=== PATIENT | female | born 1965 | race Caucasian/White ===

== ENCOUNTER → 2017-01-28 | Outpatient (CLI) | payer BC ==
--- NOTE | 2017-01-30 08:57 | RAD ---
DATE: 01/28/2017 EXAM: DIGITAL SCREEN BILAT W/CAD HISTORY: Routine screening COMPARISON: 10/10/2015, 10/02/2014, 09/12/2013 This study was interpreted with the benefit of Computerized Aided Detection (CAD). The breast parenchyma shows scattered fibroglandular densities. Breast parenchyma level B. FINDINGS: There is a grouping of microcalcifications at the 6:00 location in the left breast which has progressed since previous studies. No new or enlarging breast densities are seen. Benign-appearing lymph nodes are again noted in the axillary regions. IMPRESSION: Increasing cluster of microcalcifications in the left breast. Diagnostic mammograms to include magnification and straight medial lateral views are suggested for further evaluation. BI-RADS CATEGORY: 0 INCOMPLETE: NEEDS ADDITIONAL IMAGING EVALUATION AND/OR PRIOR MAMMOGRAMS FOR COMPARISON. RECOMMENDED FOLLOW-UP: ADD ADDITIONAL IMAGING PQRS compliance statement: Patient information was entered into a reminder system with a target due date for the next mammogram. Mammography is a sensitive method for finding small breast cancers, but it does not detect them all and is not a substitute for careful clinical examination. A negative mammogram does not negate a clinically suspicious finding and should not result in delay in biopsying a clinically suspicious abnormality. "Our facility is accredited by the [employer] Mammography [employer]."
== END | disposition home or self-care (01) ==
LOC: MAMMO 08:07
PROVIDERS: ATTEND Obstetrics & Gynecology
DX: Z12.31 Encounter for screening mammogram for malignant neoplasm of breast (principal)
CPT/HCPCS: G0202; 77067

== ENCOUNTER → 2017-02-13 | Outpatient (CLI) | payer BC ==
--- NOTE | 2017-02-13 15:04 | RAD ---
DATE: 02/13/2017 EXAM: DIGITAL DIAGNOSTIC LT HISTORY: Callback for left breast calcifications. COMPARISON: Previous mammogram from 01/28/2017, 2016 and 2015 This study was interpreted with the benefit of Computerized Aided Detection (CAD ). FINDINGS: Breast Density: SCATTERED The breast parenchyma shows scattered fibroglandular densities. Breast parenchyma level B. The cc view of the left central breast demonstrates focal area of amorphous calcifications. There is no associated architectural distortion or mass. IMPRESSION: Left breast calcifications with amorphous appearance. These are mildly suspicious and biopsy should be considered. BI-RADS CATEGORY: 4 SUSPICIOUS ABNORMALITY-BIOPSY SHOULD BE CONSIDERED RECOMMENDED FOLLOW-UP: Stereotactic BIO BIOPSY RECOMMENDED Findings were discussed with the patient on 02/13/2017. PQRS compliance statement: Patient information was entered into a reminder system with a target due date for the next mammogram. Mammography is a sensitive method for finding small breast cancers, but it does not detect them all and is not a substitute for careful clinical examination. A negative mammogram does not negate a clinically suspicious finding and should not result in delay in biopsying a clinically suspicious abnormality. "Our facility is accredited by the [employer] Mammography [employer]." MTDD
== END | disposition home or self-care (01) ==
LOC: MAMMO 09:52
PROVIDERS: ATTEND Obstetrics & Gynecology
DX: R92.1 Mammographic calcification found on diagnostic imaging of breast (principal)
CPT/HCPCS: G0206; 77065

== ENCOUNTER → 2017-02-15 | Outpatient (CLI) | payer BC ==
[~2017-02-15] MED LIST: LIDOCAINE 1% / SOD BICARB 8.4% 20 ML VIAL. IJ ONE; LIDOCAINE 2%/EPI 1:100,000 20 ML VIAL. IJ ONE
--- NOTE | 2017-02-15 12:14 | RAD ---
Clinical History: Suspicious microcalcifications left breast. Relative benefits risks and alternatives to the procedure were discussed and written informed consent was obtained. The patient patient was placed prone on a biopsy table and target microcalcifications were localized by stereotactic technique from above in the CC projection. With local anesthesia and sterile technique and mammogram stereotactic guidance percutaneous biopsy was performed with an 11-gauge Mammotome needle and vacuum assistance. Multiple samples were obtained and sent to pathology. The procedure was well tolerated. A marker was placed at the end of procedure. CC and ML views were obtained to confirm clip placement. The patient was sent home in good condition with written and verbal instructions. Impression: Status post stereotactic guided biopsy of microcalcifications. Specimen radiograph: A radiograph was obtained of the tissue specimen. Multiple microcalcifications are seen in the specimen. The specimen was inked and sent to pathology. Impression: Target microcalcifications are in the specimen. Pathology is pending.
--- NOTE | 2017-02-16 13:56 | PATHOLOGY ---
PATHOLOGY REPORT * * * * * * * * FINAL DIAGNOSIS: Breast tissue, left breast sterotactic needle biopsies: - Ancient fibroadenoma, with associated calcifications. COMMENT: There is no evidence of malignancy. (JPM:pit; 02/16/2017) REPORT ELECTRONICALLY SIGNED BY: Kody Dove M.D. DATE/TIME: 02/16/2017 13:56 * * * * * * * * GROSS PATHOLOGY: Received in formalin labeled "Dhara Reyez, left breast," is a plastic cassette containing multiple cores of yellow-rai fibrofatty tissue measuring 2.3 x 2.0 x 0.4 cm in aggregate dimensions. The tissue in the cassette is transferred to cassette A1. The cold ischemic time is 11 minutes. The total formalin fixation time is approximately 10 hours and 30 minutes. (SDY; 02/15/2017) INITIAL CPT CODE(S): A; 37140 Professional services performed [place] [facility] [place] [address] Technical services performed by [facility] at [address] [place] [address] [address] [address] Dr. Johnson, fax: [phone] SPECIMEN(S) RECEIVED: A.Left breast calcifications CLINICAL HISTORY: Left breast calcifications PATIENT: DHARA REYEZ /AGE: 3 1965 (Age: 51) PATIENT #: [id number] CASE #: SPECIMEN COLLECTION DATE: 02/15/2017 SPECIMEN RECEIVED DATE: 02/15/2017 [facility] - [address] [place] [address] - PHONE: [phone] * * * END OF REPORT * * *
== END | disposition home or self-care (01) ==
LOC: MAMMO 09:05
PROVIDERS: ATTEND Obstetrics & Gynecology
DX: R92.0 Mammographic microcalcification found on diagnostic imaging of breast (principal)
CPT/HCPCS: 19085; 77022; 88305; C1713; G0206; J3490; 77065

== ENCOUNTER → 2018-02-21 | Outpatient (CLI) | payer BC ==
--- NOTE | 2018-02-21 13:57 | RAD ---
DATE: 02/21/2018 EXAM: DIGITAL SCREEN BILAT W/CAD HISTORY: Routine screening COMPARISON: 02/15/2017, 02/13/2017, 01/28/2017 This study was interpreted with the benefit of Computerized Aided Detection (CAD). Breast Density: SCATTERED The breast parenchyma shows scattered fibroglandular densities. Breast parenchyma level B. FINDINGS: A breast biopsy marker is again noted just inferior to the midline of the left breast. That biopsy produced benign results. There are residual microcalcifications in the left breast which are most prominent just anterior, inferior and medial to the breast biopsy marker. These microcalcifications are unchanged. A small unchanged density is again noted laterally in the right breast. This corresponds in location to a larger nodule was evident in 2016. This is probably related to the given history of a previous breast abscess. No new or enlarging breast densities are seen. IMPRESSION: Stable mammograms without evidence of malignancy. BI-RADS CATEGORY: 2 BENIGN FINDING(S) RECOMMENDED FOLLOW-UP: 12M 12 MONTH FOLLOW-UP PQRS compliance statement: Patient information was entered into a reminder system with a target due date for the next mammogram. Mammography is a sensitive method for finding small breast cancers, but it does not detect them all and is not a substitute for careful clinical examination. A negative mammogram does not negate a clinically suspicious finding and should not result in delay in biopsying a clinically suspicious abnormality. "Our facility is accredited by the [employer] Mammography Program."
== END | disposition home or self-care (01) ==
LOC: MAMMO 12:16
PROVIDERS: ATTEND Family Medicine
DX: Z12.31 Encounter for screening mammogram for malignant neoplasm of breast (principal)
CPT/HCPCS: 77067

== ENCOUNTER 2019-02-20 00:19 | Emergency (ER) | payer BC ==
[~2019-02-20] VITALS: Ht 162.6 cm; Wt 122.5 kg
[2019-02-20] MEDS ORDERED: NITROGLYCERIN SUBLINGUAL 0.4 MG BOTTLE OF 25. SL PRN (00:30)
[2019-02-20 00:43] LABS: BASO # 0.1 x10^3/uL (0.0-0.2); BASO % 1 % (0-3); EOS # 0.4 x10^3/uL (0.0-0.7); EOS % 4 % (0-3); HEMATOCRIT 39.3 % (36.0-47.0); LYMPH # 1.7 x10^3/uL (1.0-4.8); LYMPH % 22 % (24-48); MEAN CORPUSCULAR HEMOGLOBIN 26 pg (25-35); MEAN CORPUSCULAR HGB CONC 33 g/dL (31-37); MEAN CORPUSCULAR VOLUME 78 fL (79-100); MONO # 0.4 x10^3/uL (0.0-1.1); MONO % 5 % (0-9); NEUT # 5.5 x10^3/uL (1.8-7.7); NEUT % 68 % (31-73); PLATELET COUNT 374 x10^3/uL (140-400); RED BLOOD COUNT 5.02 x10^6/uL (3.50-5.40); RED CELL DISTRIBUTION WIDTH 17.3 % (11.5-14.5)
[2019-02-20] MEDS ORDERED: ASPIRIN CHEWABLE 81 MG TABLET. PO ONE (00:45)
--- NOTE | 2019-02-20 00:54 | RAD ---
Exam: Chest one view INDICATION: Chest pain TECHNIQUE: Frontal view of the chest Comparisons: None FINDINGS: The cardiomediastinal silhouette and pulmonary vessels are within normal limits. The lung and pleural spaces are clear. IMPRESSION: No acute cardiopulmonary process. Electronically signed by: Mariaa Blanchard MD (02/20/2019 12:51 AM) [facility]
[2019-02-20 00:55] LABS: CALCIUM 9.3 mg/dL (8.5-10.1); CREATININE 1.4 mg/dL (0.6-1.0); GFR 39.2; POTASSIUM 3.9 mmol/L (3.5-5.1)
[2019-02-20] MEDS ORDERED: MORPHINE SULFATE 2 MG/ML VIAL. IV ONE (01:00)
[2019-02-20] MEDS ORDERED: ONDANSETRON PF 4 MG/2 ML VIAL. IV ONE (01:00)
[2019-02-20 01:01] LABS: ALBUMIN 3.7 g/dL (3.4-5.0); ALBUMIN/GLOBULIN RATIO 0.9 (1.0-1.7); MAGNESIUM 2.1 mg/dL (1.8-2.4); TOTAL BILIRUBIN 0.5 mg/dL (0.2-1.0); TOTAL PROTEIN 7.9 g/dL (6.4-8.2)
--- NOTE | 2019-02-20 01:26 | PHYS DOC ---
Past Medical History Past Medical History: Asthma, Hypothyroid Past Surgical History: Cholecystectomy, Other Additional Past Surgical Histo: Dental Alcohol Use: None Drug Use: None Adult General Chief Complaint Chief Complaint: CHEST PAIN HPI HPI 53-year-old female presents to the emergency department with complaints of nausea, vomiting, epigastric pain radiation to her back. Started around 8:30 PM after eating something she developed nausea vomiting and epigastric pain. She didn't states the pain radiates towards her back. She is prehypertensive upon initial evaluation systolic blood pressure greater than 200. She does complain of a history of DVT she is currently on no blood thinning medications at this time. Patient denies any fever, chills, diarrhea. Her pain worse, nothing makes her pain better. She states she's had a history of cholecystectomy in the past. Review of Systems Review of Systems Constitutional: Denies fever or chills [] Respiratory: SOB Cardiovascular: No additional information not addressed in HPI [] GI: + abdominal pain, nausea, vomiting, no bloody stools or diarrhea [] Musculoskeletal: pain radiated to back, no joint pain [] Integument: Denies rash or skin lesions [] Neurologic: Denies headache, focal weakness or sensory changes [] All other systems were reviewed and found to be within normal limits, except as documented in this note. Current Medications Current Medications Current Medications Medications (Trade) Dose Ordered Sig/Bony Start Time Stop Time Status Last Admin Dose Admin Aspirin (Children'S Aspirin) 324 mg 1X ONCE 02/20/19 00:45 02/20/19 00:46 DC 02/20/19 00:53 324 MG Hydromorphone HCl (Dilaudid) 1 mg 1X ONCE 02/20/19 03:15 02/20/19 03:28 DC 02/20/19 03:09 1 MG Info (CONTRAST GIVEN -- Rx MONITORING) 1 each PRN DAILY PRN 02/20/19 04:15 02/22/19 04:14 Iohexol (Omnipaque 240 Mg/ml) 50 ml 1X ONCE 02/20/19 04:15 02/20/19 04:16 DC 02/20/19 04:11 50 ML Iohexol (Omnipaque 350 Mg/ml) 100 ml STK-MED ONCE 02/20/19 02:34 02/20/19 02:35 DC Levofloxacin/ Dextrose 150 ml @ 100 mls/hr 1X ONCE 02/20/19 03:15 02/20/19 04:44 02/20/19 03:10 100 MLS/HR Metronidazole 100 ml @ 100 mls/hr 1X ONCE 02/20/19 03:00 02/20/19 03:59 DC 02/20/19 03:10 100 MLS/HR Morphine Sulfate (Morphine Sulfate) 2 mg 1X ONCE 02/20/19 01:00 02/20/19 01:01 DC 02/20/19 01:12 2 MG Nitroglycerin (Nitrostat) 0.4 mg PRN Q5MIN PRN 02/20/19 00:30 02/21/19 00:29 02/20/19 00:55 0.4 MG Ondansetron HCl (Zofran) 4 mg 1X ONCE 02/20/19 01:00 02/20/19 01:01 DC 02/20/19 01:12 4 MG Sodium Chloride 1,000 ml @ 1,000 mls/hr 1X ONCE 02/20/19 02:00 02/20/19 02:59 DC 02/20/19 02:31 1,000 MLS/HR Allergies Allergies Allergies Coded Allergies Type Severity Reaction Last Updated Verified Penicillins Allergy Intermediate 02/15/17 Yes cefaclor Allergy Intermediate SWOLLEN EYES 02/15/17 Yes cephalexin Allergy Intermediate 02/15/17 Yes Physical Exam Physical Exam Constitutional: Well developed, well nourished, acute distress 2/2 pain, pale, nontoxic appearing. [] HENT: Normocephalic, atraumatic, bilateral external ears normal, oropharynx moist, no oral exudates, nose normal. [] Eyes: PERRLA, EOMI, conjunctiva normal, no discharge. [] Neck: Normal range of motion, no tenderness, supple, no stridor. [] Cardiovascular:Heart rate regular rhythm, no murmur [] Lungs & Thorax: Bilateral breath sounds clear to auscultation [] Abdomen: Bowel sounds normal, soft, no tenderness, no masses, no pulsatile masses. [] Skin: Warm, dry, no erythema, no rash. [] Back: pain radiates to her back, no CVA tenderness. [] Extremities: No tenderness, + edema bilateral lower edema. [] Neurologic: Alert and oriented X 3, no focal deficits noted. [] Psychologic: Affect normal, judgement normal, mood normal. [] Current Patient Data Vital Signs Vital Signs Date Time Temp Pulse Resp B/P (MAP) Pulse Ox O2 Delivery O2 Flow Rate FiO2 02/20/19 03:09 93 02/20/19 03:07 111 175/75 (108) Nasal Cannula 4.0 02/20/19 00:20 98.0 19 98.0 Lab Values Laboratory Tests Test 02/20/19 00:30 02/20/19 00:38 White Blood Count 8.0 x10^3/uL (4.0-11.0) Red Blood Count 5.02 x10^6/uL (3.50-5.40) Hemoglobin 13.0 g/dL (12.0-15.5) Hematocrit 39.3 % (36.0-47.0) Mean Corpuscular Volume 78 fL (79-100) L Mean Corpuscular Hemoglobin 26 pg (25-35) Mean Corpuscular Hemoglobin Concent 33 g/dL (31-37) Red Cell Distribution Width 17.3 % (11.5-14.5) H Platelet Count 374 x10^3/uL (140-400) Neutrophils (%) (Auto) 68 % (31-73) Lymphocytes (%) (Auto) 22 % (24-48) L Monocytes (%) (Auto) 5 % (0-9) Eosinophils (%) (Auto) 4 % (0-3) H Basophils (%) (Auto) 1 % (0-3) Neutrophils # (Auto) 5.5 x10^3/uL (1.8-7.7) Lymphocytes # (Auto) 1.7 x10^3/uL (1.0-4.8) Monocytes # (Auto) 0.4 x10^3/uL (0.0-1.1) Eosinophils # (Auto) 0.4 x10^3/uL (0.0-0.7) Basophils # (Auto) 0.1 x10^3/uL (0.0-0.2) D-Dimer (Betsy) 1.04 ug/mlFEU (0.00-0.50) H Sodium Level 143 mmol/L (136-145) Potassium Level 3.9 mmol/L (3.5-5.1) Chloride Level 102 mmol/L (98-107) Carbon Dioxide Level 33 mmol/L (21-32) H Anion Gap 8 (6-14) Blood Urea Nitrogen 16 mg/dL (7-20) Creatinine 1.4 mg/dL (0.6-1.0) H Estimated GFR (Cockcroft-Gault) 39.2 BUN/Creatinine Ratio 11 (6-20) Glucose Level 125 mg/dL (70-99) H Calcium Level 9.3 mg/dL (8.5-10.1) Magnesium Level 2.1 mg/dL (1.8-2.4) Total Bilirubin 0.5 mg/dL (0.2-1.0) Aspartate Amino Transferase (AST) 20 U/L (15-37) Alanine Aminotransferase (ALT) 29 U/L (14-59) Alkaline Phosphatase 116 U/L (46-116) Troponin I Quantitative < 0.017 ng/mL (0.000-0.055) LC-Qyo-A-Type Natriuretic Peptide 287 pg/mL (0-124) H Total Protein 7.9 g/dL (6.4-8.2) Albumin 3.7 g/dL (3.4-5.0) Albumin/Globulin Ratio 0.9 (1.0-1.7) L Lipase 128 U/L (73-393) Lactic Acid Level 1.3 mmol/L (0.4-2.0) Laboratory Tests 02/20/19 00:30 Laboratory Tests 02/20/19 00:30 EKG EKG EKG: interpretation 0025, HR 90, normal axis, no STEMI appreciated[] Radiology/Procedures Radiology/Procedures [facility] [address] [place] [address] IMAGING REPORT Signed PATIENT: LANG BECERRA ACCOUNT: [id number] : 1965 LOCATION: ER AGE: 53 SEX: F EXAM STATUS: REG ER ORD. PHYSICIAN: VIK RIVERA MD REASON: Chest Pain PROCEDURE: PORTABLE CHEST 1V Exam: Chest one view INDICATION: Chest pain TECHNIQUE: Frontal view of the chest Comparisons: None FINDINGS: The cardiomediastinal silhouette and pulmonary vessels are within normal limits. The lung and pleural spaces are clear. IMPRESSION: No acute cardiopulmonary process. Electronically signed by: Mariaa Alvarez MD (02/20/2019 12:51 AM) [facility] DICTATED and SIGNED BY: MARIAA ALVAREZ MD DATE: 02/20/19 0051 [] [facility] [address] [place] [address] IMAGING REPORT Signed PATIENT: LANG BECERRA ACCOUNT: [id number] : 1965 LOCATION: ER AGE: 53 SEX: F EXAM STATUS: REG ER ORD. PHYSICIAN: VIK RIVERA MD REASON: chest pain, epigastric pain history of DVT OMNI 350, 70ML IV PROCEDURE: CT ANGIO CHEST ABD PELVIS Exam: CT of chest, abdomen and pelvis with contrast INDICATION: Chest pain TECHNIQUE: Sequential axial images through the chest, abdomen and pelvis obtained following the administration of 70 mL of Omni 350 IV contrast. Sagittal and coronal reformatted images were reconstructed from the axial data and reviewed. 3-D reformatted images were reconstructed from the axial data and reviewed. Comparisons: Chest x-ray same day FINDINGS: Visualized portions of the thyroid are unremarkable. No enlarged mediastinal lymph nodes are identified. Heart size is normal. No pericardial effusion. Thoracic aorta has a normal course and caliber. Pulmonary artery is not enlarged. No pulmonary embolus identified within the main, lobar or segmental pulmonary arteries. Evaluation in the left lower lobe limited secondary to cardiac motion. There is a small amount of pneumomediastinum predominantly surrounding the distal esophagus seen tracking up the posterior mediastinum. Airways are patent. No consolidation or pneumothorax. There is a small left-sided pleural effusion with adjacent airspace disease, likely atelectasis. No suspicious lung nodules. Mild hepatic steatosis. Spleen, pancreas, and adrenals are unremarkable. Gallbladder surgically absent. Kidneys demonstrate symmetric enhancement. No perinephric inflammation or hydronephrosis. No renal or ureteral calculi are identified. Bladder is decompressed not well evaluated. Uterus is not enlarged. No abnormal adnexal mass. Large and small bowel are unremarkable. No obstruction. No free intra-abdominal air or fluid. There is wall thickening at the gastroesophageal junction. Abdominal aorta has a normal course and caliber. Abdominal vasculature is patent. No enlarged abdominal lymph nodes. No suspicious osseous lesions or acute fractures. IMPRESSION: 1. Findings likely related to a distal esophageal perforation. Wall thickening of the distal esophagus with small amount of extraluminal air surrounding the distal esophagus tracking up the posterior mediastinum. Additionally there is a small amount of pleural fluid on the left adjacent to the esophagus. 2. No pulmonary embolus identified within the main, lobar or segmental pulmonary arteries. 3. Mild hepatic. Exposure: One or more of the following in the visualized dose reduction techniques were utilized for this examination: 1. Automated exposure control 2. Adjustment of the MA and/or KV according to patient size 3. Use of iterative of reconstructive technique FOR INTERNAL CODING PURPOSES Critical result: Findings discussed with VIK RIVERA at 02/20/2019 2:35 AM. RESULT CODE: (C) Electronically signed by: Mariaa Alvarez MD (02/20/2019 2:42 AM) [facility] DICTATED and SIGNED BY: MARIAA ALVAREZ MD DATE: 02/20/19 0242 [facility] [address] [place] [address] IMAGING REPORT Signed PATIENT: LANG BECERRA ACCOUNT: [id number] : 1965 LOCATION: ER AGE: 53 SEX: F EXAM STATUS: REG ER ORD. PHYSICIAN: VIK RIVERA MD REASON: oral contrast only, concern for distal esophageal rupture PROCEDURE: CT CHEST W/CONTRAST Exam: CT of chest without contrast INDICATION: Concern for distal esophageal rupture TECHNIQUE: Sequential axial images through the chest obtained without IV contrast. Oral contrast was administered. Sagittal and coronal reformatted images were reconstructed from the axial data and reviewed. Comparisons: CT same day FINDINGS: Visualized portions of the thyroid are unremarkable. No enlarged mediastinal lymph nodes are identified. Heart size is normal. No pericardial effusion. Thoracic aorta has normal course and caliber. Pulmonary artery is not enlarged. Airways are patent. Redemonstration of a left basilar pleural effusion with adjacent airspace disease at the left lower lobe. Oral contrast is noted within the esophagus with distention of the distal esophagus and proximal stomach. No extravasated oral contrast is identified. There is redemonstration of pneumomediastinum tracking along the esophagus, greatest at the lower esophagus. Visualized upper abdomen is unremarkable. No suspicious osseous lesions or acute fractures. IMPRESSION: No extravasated contrast is identified. There remains concern for distal esophageal perforation given the posterior pneumomediastinum surrounding the distal esophagus and left basilar effusion. Exposure: One or more of the following in the visualized dose reduction techniques were utilized for this examination: 1. Automated exposure control 2. Adjustment of the MA and/or KV according to patient size 3. Use of iterative of reconstructive technique Electronically signed by: Mariaa Alvarez MD (02/20/2019 4:15 AM) [facility] DICTATED and SIGNED BY: MARIAA ALVAREZ MD DATE: 02/20/19414 Course & Med Decision Making Course & Med Decision Making Pertinent Labs and Imaging studies reviewed. (See chart for details) []53-year-old female presents to the emergency department with complaints of nausea, vomiting, epigastric pain radiation to her back. Started around 8:30 PM after eating something she developed nausea vomiting and epigastric pain. She didn't states the pain radiates towards her back. She is prehypertensive upon initial evaluation systolic blood pressure greater than 200. She does complain of a history of DVT she is currently on no blood thinning medications at this time. Patient denies any fever, chills, diarrhea. Her pain worse, nothing makes her pain better. She states she's had a history of cholecystectomy in the past. NTG sublingual times one without improvement Morphine 2 mg, Zofran 4 mg IV 1 Systolic blood pressure did improve after nitroglycerin as well as morphine currently 130s her pain however has not improved. Dilaudid 1mg IV x 1 - pain improved, reassessment 0445 Call from radiology 0300 with report concerning for esophageal rupture Call placed to Transfer Center - 0305 / no Thoracic Surgery at this facility Discussed with [facility] transfer, recommend further evaluation with esophagram of which we dont do after hours according to Radiology, instead will attempt CT chest with oral contrast to evaluate the distal esophagus Call back from 0430 - Vascular Surgeon (Dr. Connell) will accept patient in transfer Discussed findings with patient/family at bedside Patient will be transferred to via ambulance Dragon Disclaimer Dragon Disclaimer This electronic medical record was generated, in whole or in part, using a voice recognition dictation system. Departure Departure Impression: Primary Impression: Esophageal abnormality Additional Impressions: Nausea & vomiting Asthma without acute exacerbation Hypothyroid Obesity, morbid, BMI 40.0-49.9 Disposition: 05 TRANSFER OTHER ([facility]) Condition: STABLE Referrals: BALAJI YOST MD (PCP) Critical Care Time Critical care time was 45 minutes exclusive of procedures. Problem Qualifiers Additional Impressions: Nausea & vomiting Vomiting type: unspecified Vomiting Intractability: non-intractable Qualified Codes: R11.2 - Nausea with vomiting, unspecified Hypothyroid Hypothyroidism type: unspecified Qualified Codes: E03.9 - Hypothyroidism, unspecified VIK RIVERA MD Feb 20, 2019 01:26
[2019-02-20] MEDS ORDERED: IOHEXOL 350 MG/ML 100 ML VIAL. IV ONE ×2 (02:00→02:45)
[2019-02-20] MEDS ORDERED: IV NORMAL SALINE 1000ML BAG 1,000 ML IV ONE (02:00)
[2019-02-20] MEDS ORDERED: IOHEXOL 350 MG/ML 100 ML VIAL. ONE (02:34)
[2019-02-20] MEDS ORDERED: CONTRAST GIVEN. MC PRN ×2 (02:45→04:15)
--- NOTE | 2019-02-20 02:45 | RAD ---
Exam: CT of chest, abdomen and pelvis with contrast INDICATION: Chest pain TECHNIQUE: Sequential axial images through the chest, abdomen and pelvis obtained following the administration of 70 mL of Omni 350 IV contrast. Sagittal and coronal reformatted images were reconstructed from the axial data and reviewed. 3-D reformatted images were reconstructed from the axial data and reviewed. Comparisons: Chest x-ray same day FINDINGS: Visualized portions of the thyroid are unremarkable. No enlarged mediastinal lymph nodes are identified. Heart size is normal. No pericardial effusion. Thoracic aorta has a normal course and caliber. Pulmonary artery is not enlarged. No pulmonary embolus identified within the main, lobar or segmental pulmonary arteries. Evaluation in the left lower lobe limited secondary to cardiac motion. There is a small amount of pneumomediastinum predominantly surrounding the distal esophagus seen tracking up the posterior mediastinum. Airways are patent. No consolidation or pneumothorax. There is a small left-sided pleural effusion with adjacent airspace disease, likely atelectasis. No suspicious lung nodules. Mild hepatic steatosis. Spleen, pancreas, and adrenals are unremarkable. Gallbladder surgically absent. Kidneys demonstrate symmetric enhancement. No perinephric inflammation or hydronephrosis. No renal or ureteral calculi are identified. Bladder is decompressed not well evaluated. Uterus is not enlarged. No abnormal adnexal mass. Large and small bowel are unremarkable. No obstruction. No free intra-abdominal air or fluid. There is wall thickening at the gastroesophageal junction. Abdominal aorta has a normal course and caliber. Abdominal vasculature is patent. No enlarged abdominal lymph nodes. No suspicious osseous lesions or acute fractures. IMPRESSION: 1. Findings likely related to a distal esophageal perforation. Wall thickening of the distal esophagus with small amount of extraluminal air surrounding the distal esophagus tracking up the posterior mediastinum. Additionally there is a small amount of pleural fluid on the left adjacent to the esophagus. 2. No pulmonary embolus identified within the main, lobar or segmental pulmonary arteries. 3. Mild hepatic. Exposure: One or more of the following in the visualized dose reduction techniques were utilized for this examination: 1. Automated exposure control 2. Adjustment of the MA and/or KV according to patient size 3. Use of iterative of reconstructive technique FOR INTERNAL CODING PURPOSES Critical result: Findings discussed with VIK RIVERA at 02/20/2019 2:35 AM. RESULT CODE: (C) Electronically signed by: Mariaa Blanchard MD (02/20/2019 2:42 AM) [email or web address]
[2019-02-20] MEDS ORDERED: HYDROmorphone 2 MG/ML VIAL IV ONE (03:15)
[2019-02-20] MEDS ORDERED: IOHEXOL 240 MG/ML 50ML VIAL. PO ONE (04:15)
--- NOTE | 2019-02-20 04:18 | RAD ---
Exam: CT of chest without contrast INDICATION: Concern for distal esophageal rupture TECHNIQUE: Sequential axial images through the chest obtained without IV contrast. Oral contrast was administered. Sagittal and coronal reformatted images were reconstructed from the axial data and reviewed. Comparisons: CT same day FINDINGS: Visualized portions of the thyroid are unremarkable. No enlarged mediastinal lymph nodes are identified. Heart size is normal. No pericardial effusion. Thoracic aorta has normal course and caliber. Pulmonary artery is not enlarged. Airways are patent. Redemonstration of a left basilar pleural effusion with adjacent airspace disease at the left lower lobe. Oral contrast is noted within the esophagus with distention of the distal esophagus and proximal stomach. No extravasated oral contrast is identified. There is redemonstration of pneumomediastinum tracking along the esophagus, greatest at the lower esophagus. Visualized upper abdomen is unremarkable. No suspicious osseous lesions or acute fractures. IMPRESSION: No extravasated contrast is identified. There remains concern for distal esophageal perforation given the posterior pneumomediastinum surrounding the distal esophagus and left basilar effusion. Exposure: One or more of the following in the visualized dose reduction techniques were utilized for this examination: 1. Automated exposure control 2. Adjustment of the MA and/or KV according to patient size 3. Use of iterative of reconstructive technique Electronically signed by: Mariaa Blanchard MD (02/20/2019 4:15 AM) [email or web address]
[2019-02-20 04:38] VITALS: BP 188/80
--- NOTE | 2019-02-20 16:19 | EKG ---
[facility] [address] [place] [address] Test Date: 2019-02-20 Test Time: 00:25:16 Pat Name: LANG BECERRA Department: Room: Gender: F [employer]: : 1965 Requested By: VIK RIVERA Order Number: [id number] Reading MD: Measurements Intervals Lynx Rate: 90 P: 47 NJ: 164 QRS: 16 QRSD: 72 T: 87 QT: 368 QTc: 454 Interpretive Statements SINUS RHYTHM ST & T ABNORMALITY, CONSIDER HIGH LATERAL ISCHEMIA OR LEFT VENTRICULAR STRAIN T ABNORMALITY IN INFERIOR LEADS ABNORMAL ECG No previous ECG available for comparison
== END 2019-02-20 05:17 | disposition short-term general hospital (02) ==
LOC: ER 00:19
DX: K22.8 Other specified diseases of esophagus (principal); R11.2 Nausea with vomiting, unspecified; R60.0 Localized edema; J45.909 Unspecified asthma, uncomplicated; E03.9 Hypothyroidism, unspecified; E66.01 Morbid (severe) obesity due to excess calories; Z68.42 Body mass index [BMI] 45.0-49.9, adult; Z90.49 Acquired absence of other specified parts of digestive tract; Z98.890 Other specified postprocedural states; Z79.82 Long term (current) use of aspirin; Z79.899 Other long term (current) drug therapy; Z88.0 Allergy status to penicillin; Z88.1 Allergy status to other antibiotic agents
CPT/HCPCS: 36415; 71045; 71260; 71275; 74174; 80053; 83605; 83690; 83735; 83880; 84484; 85025; 85379; 93005; 96361; 96365; 96366; 96368; 96375; 99285; J1170; J1956; J2270; J2405; J3490; J7030; Q9966; Q9967

== ENCOUNTER → 2020-01-11 | Outpatient (CLI) | payer BC ==
--- NOTE | 2020-01-13 11:00 | RAD ---
DATE: 01/11/2020 9:00 AM EXAM: DIGITAL SCREEN BILAT W/CAD HISTORY: Screening. History of benign left breast stereotactic biopsy of calcifications showing ancient fibroadenoma. COMPARISON: 02/21/2018, 02/15/2017 Bilateral full field craniocaudal and mediolateral oblique images were obtained using digital technique. This study was interpreted with the benefit of Computerized Aided Detection (CAD). FINDINGS: Breast Density: SCATTERED The breast parenchyma shows scattered fibroglandular densities. Breast parenchyma level B Benign biopsy marker in the posterior central left breast and residual calcifications in the inferior middle third left breast. No significant interval change. No suspicious masses, microcalcifications or architectural distortion is present to suggest malignancy in either breast. The visualized axillae are unremarkable. IMPRESSION: No mammographic evidence of malignancy. BI-RADS CATEGORY: 2 BENIGN FINDING(S) RECOMMENDED FOLLOW-UP: 12M 12 MONTH FOLLOW-UP Annual screening mammography is recommended, unless clinically indicated sooner based on symptoms or change in physical exam. PQRS compliance statement: Patient information was entered into a reminder system with a target due date for the next mammogram. Mammography is a sensitive method for finding small breast cancers, but it does not detect them all and is not a substitute for careful clinical examination. A negative mammogram does not negate a clinically suspicious finding and should not result in delay in biopsying a clinically suspicious abnormality. "Our facility is accredited by the [employer] Mammography Program."
== END ==
LOC: MAMMO 08:59
PROVIDERS: ATTEND Family Medicine
DX: Z12.31 Encounter for screening mammogram for malignant neoplasm of breast (principal)
CPT/HCPCS: 77067

== ENCOUNTER → 2021-01-16 | Outpatient (CLI) | payer BC ==
--- NOTE | 2021-01-18 13:30 | RAD ---
INDICATION: 55 years of age asymptomatic female patient presents for screening mammography. TECHNIQUE: Bilateral full field craniocaudal and mediolateral oblique images were obtained using dig ital technique and also analyzed with computer-aided detection software. COMPARISON: Prior mammographic imaging dating 01/11/2020, 02/21/2018, 02/23/2017, 01/28/2017, 6 H6 10/09/1713 BREAST COMPOSITION: Category B: There are scattered fibroglandular densities. FINDINGS: Benign calcifications are present. The parenchymal pattern appears stable. No suspicious masses, microcalcifications or architectural distortion is present to suggest malignanc y in either breast. The visualized axillae are unremarkable. IMPRESSION: No mammographic evidence of malignancy. RECOMMENDATION: Annual screening mammography is recommended, unless clinically indicated sooner based on symptoms or change in physical exam. BIRADS 2: BENIGN This study was interpreted with the benefit of Computerized Aided Detection (CAD). Patient information is entered into the reminder system with a target due date for the next screening mammogram. Mammography is the most sensitive method for finding small breast cancers, but it does not detect the m all and is not a substitute for careful clinical examination. A negative mammogram does not negate a clinically suspicious finding and should not result in delay in biopsying a clinically suspicious a bnormality. "Our facility is accredited by the [employer] Mammography Program." Electronically signed by: Dallin Chu MD (01/18/2021 1:27 PM) [email or web address]
== END ==
LOC: MAMMO 08:09
PROVIDERS: ATTEND Family Medicine
DX: Z12.31 Encounter for screening mammogram for malignant neoplasm of breast (principal)
CPT/HCPCS: 77067